=== PATIENT | male | born 1965 | race Caucasian/White ===

== ENCOUNTER 2016-07-15 07:09 | Day surgery (SDC) | payer BC ==
[~2016-07-15 07:09] MED LIST: Lactated Ringers 1,000 ML IV SCH
[2016-07-15] MEDS ORDERED: Lidocaine 1% 50 ML MDV ONE (07:38)
[2016-07-15] MEDS ORDERED: Propofol 200 MG/20 ML SDV ONE (07:40)
[2016-07-15] MEDS ORDERED: Lidocaine 2% 5 ML SDV ONE (07:40)
[2016-07-15] MEDS ORDERED: Ondansetron 4 MG/2 ML SDV ONE (07:41)
[2016-07-15] MEDS ORDERED: Midazolam 1 MG/ML 2 ML SDV ONE (07:41)
[2016-07-15] MEDS ORDERED: fentaNYL 250 MCG/5 ML SDV ONE (07:41)
[2016-07-15] MEDS ORDERED: Ketorolac 30 MG/ML SDV ONE (07:41)
[2016-07-15] MEDS ORDERED: ceFAZolin 2 GM in Premix Bag 1 BAG IV SCH (08:00)
[2016-07-15] MEDS ORDERED: Hydrocortisone Sodium Succinate 250 MG/2 ML SDV IV ONE (08:07)
--- NOTE | 2016-07-15 08:11 | PCM.PREANE ---
Preanesthetic Assessment - Anesthesia/Transfusion/Family Hx Anesthesia History: Prior Anesthesia Without Reaction Family History of Anesthesia Reaction: No Transfusion History: No Prior Transfusion(s) - Review of Systems General: No Symptoms Pulmonary: No Symptoms Cardiovascular: No Symptoms Gastrointestinal: No symptoms Neurological: No Symptoms Other: Reports: None - Physical Assessment NPO Status Date: 07/14/16 O2 Sat by Pulse Oximetry: 99 Respiratory Rate: 16 Vital Signs: Last Vital Signs Temp 36.4 C 07/15/16 07:38 Pulse 71 07/15/16 07:38 Resp 16 07/15/16 07:38 BP 130/70 07/15/16 07:38 Pulse Ox 99 07/15/16 07:38 Height: 1.8 m Weight: 84.822 kg ASA Class: 2 Mental Status: Alert & Oriented x3 Airway Class: Mallampati = 2 Dentition: Reports: Normal Dentition (veneers on upper incisors) ROM/Head Extension: Full Lungs: Clear to auscultation, Normal respiratory effort Cardiovascular: Regular Rate, Regular Rhythm - Allergies Allergies/Adverse Reactions: Allergies Allergy/AdvReac Type Severity Reaction Status Date / Time No Known Allergies Allergy Verified 07/24/13 16:24 - Anesthesia Plan Pre-Op Medication Ordered: Other (hydrocortisone 25 mg IV ordered, to be given intraoperatively.) - Acknowledgements Anesthesia Type Planned: General Anesthesia Pt an Appropriate Candidate for the Planned Anesthesia: Yes Alternatives and Risks of Anesthesia Discussed w Pt/Guardian: Yes Pt/Guardian Understands and Agrees with Anesthesia Plan: Yes PreAnesthesia Questionnaire HEENT History: Reports: Other (see below) Other HEENT History: wears glasses Cardiovascular History: Reports: High cholesterol Gastrointestinal History: Reports: Other (see below) Other Gastrointestinal History: occasional heartburn Musculoskeletal History: Reports: Back pain, chronic, Fracture Other Musculoskeletal History: hx fx collarbone, hx torn ligament to ankles 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 - Past Surgical History Head Surgeries/Procedures: Reports: None GI Surgical History: Reports: Hernia, inguinal Other GI Surgeries/Procedures: hx inguinal hernia repair Musculoskeletal Surgical History: Reports: Arthroscopic knee Other Musculoskeletal Surgeries/Procedures:: hx ACL repair left knee, hx arthroscopy rt knee - SUBSTANCE USE Smoking Status *Q: Former Smoker Tobacco Use Within Last Twelve Months: No Days Per Week of Alcohol Use: 7 Number of Drinks Per Day: 3 Total Drinks Per Week: 21 Recreational Drug Use History: No - HOME MEDS Home Medications: Home Meds Hydrocortisone 30 mg PO BID 07/24/13 [History] Levothyroxine 125 mcg PO DAILY 07/24/13 [History] Celecoxib 200 mg PO BID PRN 07/13/16 [History] - CURRENT (IN HOUSE) MEDS Current Meds: Current Medications Acetaminophen/Hydrocodone Bitart ([place] 325-5 Mg) 1 - 2 tab PO Q4H PRN PRN Reason: Pain Lactated Ringer's (Ringers, Lactated) 1,000 mls @ 100 mls/hr IV ASDIRECTED [facility] Last Admin: 07/15/16 07:37 Dose: 100 mls/hr Cefazolin Sodium/Dextrose 2 gm (/ Premix) 50 mls @ 100 mls/hr IV ONCALL RONAK Discontinued Medications Fentanyl (Sublimaze) Confirm Administered Dose 250 mcg .ROUTE .STK-MED ONE Stop: 07/15/16 07:42 Ketorolac Tromethamine (Toradol) Confirm Administered Dose 30 mg .ROUTE .STK- MED ONE Stop: 07/15/16 07:42 Lidocaine (Xylocaine-Mpf 2%) Confirm Administered Dose 10 ml .ROUTE .STK-MED ONE Stop: 07/15/16 07:41 Lidocaine HCl (Xylocaine 1%) Confirm Administered Dose 50 ml .ROUTE .STK-MED ONE Stop: 07/15/16 07:39 Midazolam HCl (Versed 1 Mg/Ml) Confirm Administered Dose 2 mg .ROUTE .STK-MED ONE Stop: 07/15/16 07:42 Ondansetron HCl (Zofran) Confirm Administered Dose 4 mg .ROUTE .STK-MED ONE Stop: 07/15/16 07:42 Propofol (Diprivan 20 Ml) Confirm Administered Dose 400 mg .ROUTE .STK-MED ONE Stop: 07/15/16 07:41 Preanesthetic Assessment - ANESTHESIA/TRANSFUSION/FAMILY HX Family History of Anesthesia Reaction: No - PHYSICAL ASSESSMENT O2 Sat by Pulse Oximetry: 99 RR: 16 Vital Signs: Last Vital Signs Temp 36.4 C 07/15/16 07:38 Pulse 71 07/15/16 07:38 Resp 16 07/15/16 07:38 BP 130/70 03/22/17 07:38 Pulse Ox 99 07/15/16 07:38 Height: 1.8 m Weight: 84.822 kg - ALLERGIES Allergies/Adverse Reactions: Allergies Allergy/AdvReac Type Severity Reaction Status Date / Time No Known Allergies Allergy Verified 07/24/13 16:24
[2016-07-15] MEDS ORDERED: Hydrocortisone Sodium Succinate 100 MG/2 ML SDV IV ONE (09:30)
[2016-07-15] MEDS ORDERED: ePHEDrine 50 MG/ML SDV ONE (09:41)
[2016-07-15] MEDS ORDERED: Acetaminophen/HYDROcodone 325-5 MG Tab PO PRN (10:00)
--- NOTE | 2016-07-15 10:42 | PCM.OPNOTE ---
<Carri Mcmahan - Last Filed: 07/15/16 10:38> - General Post-Op/Procedure Note Date of Surgery/Procedure: 07/15/16 Operative Procedure(s): right knee arthroscopy, partial medial and partial lateral meniscectomy Anesthesia Technique: MAC Primary Surgeon: Milagro Frias Canvas Baster: Carri Mcmahan Canvas Baster: Zenaida Bennett EBL in mLs: 5 Drain/Tube Comments:: tourniquet time: 44 minutes Condition: Good <Milagro Frias - Last Filed: 07/15/16 10:50> - General Post-Op/Procedure Note Free Text/Narrative:: #[id number] tt=44 min
[2016-07-15] MEDS: fentaNYL 100 MCG/2 ML SDV IVPUSH PRN ×2 (11:12→11:17)
[2016-07-15] MEDS ORDERED: diphenhydrAMINE 50 MG/ML SDV IVPUSH ONE (11:36)
[2016-07-15 11:59] VITALS: BP 128/75
--- NOTE | 2016-07-15 12:03 | OR ---
SURGEON: Milagro Frias MD DATE OF PROCEDURE: 07/15/2016 PREOPERATIVE DIAGNOSIS: Right knee pain, status post ACL reconstruction. POSTOPERATIVE DIAGNOSES: 1. Right knee medial meniscus tear. 2. Right knee lateral meniscus tear. 3. Degenerative joint disease, right knee. PROCEDURE: Right knee arthroscopy with partial medial and lateral meniscectomy. COMPUTATIONAL MATHEMATICIAN: Carri Mcmahan MD, PGY-2. ANESTHESIA: General. ESTIMATED BLOOD LOSS: 5 mL. TOURNIQUET TIME: 44 minutes. COMPLICATIONS: None. DVT PROPHYLAXIS: None indicated. IMPLANTS USED: None. BRIEF HISTORY: Cooper is a 50-year-old male, who has had complaint of progressive right knee pain. He has tried cortisone injections in the past, which has given him limited short-term relief. He has previously undergone an ACL reconstruction many years ago. He does have retained metallic screws. Due to the fact that he had the retained metallic screws, I did not recommend an MRI. With his continued pain, I recommended he undergo a right knee arthroscopy. He agreed to proceed. DESCRIPTION OF PROCEDURE: The patient was properly identified and brought to the operating room. He was transferred from the OR cart and placed on the operating table in the supine position. General anesthesia was administered. After adequate anesthesia was obtained, a well-padded tourniquet was applied to the right lower extremity. The right lower extremity was then prepped in standard fashion using ChloraPrep solution. It was then sterilely draped. A time-out was performed to ensure correct site and procedure. Preoperative antibiotics were given. The surgical site had been marked preoperatively. An Esmarch was used to exsanguinate the right lower extremity and the tourniquet was inflated to 250 mmHg. A lateral portal arthrotomy was established. Blunt trocar and cannula were introduced into the suprapatellar pouch. Camera, inflow, and outflow were assembled. No significant synovitis was noted. The patellofemoral joint was visualized. There was some mild degenerative changes along the central portion of the trochlea consistent with grade 2 chondromalacia. The patella appeared to track centrally. I then extended down the lateral gutter. No loose bodies were identified. As I extended down the medial gutter, there was a synovial shelf which appeared to be impinging on the medial femoral condyle with flexion and extension of the knee. I extended down to the medial joint line and no loose bodies were identified. I then entered the medial compartment. A medial portal arthrotomy was established. A blunt probe was inserted. He was found to have complex tear of the posterior horn of the medial meniscus. Using a combination of biters and madeline, this was resected back to a stable remnant. Very little meniscus remained along the posterior aspect of the knee. The remainder of the meniscus was intact. The cartilaginous surfaces were then inspected. There was a diffuse grade 3 chondromalacia along the medial tibial plateau. The medial femoral condyle showed grade 2 to grade 3 chondromalacia diffusely as well. I then entered the notch. The ACL graft was identified. There was some fraying of the anterior fibers. This was resected with a shaver as they appeared to be causing some impingement in the joint. The remainder of the ACL remained intact. Along the superior portion of the notch, the metallic screw from the prior ACL reconstruction was visualized. It was quite superior within the notch. It did not appear to be causing any impingement and I elected to leave it in place. There was a loose bony piece which was attached to the synovium just lateral to the ACL. I also removed this bony piece without difficulty. I then entered the lateral compartment. Grade 2 to grade 3 chondromalacia was noted diffusely along the lateral tibial plateau surface as well as lateral femoral condyle. The meniscus was probed. Degenerative fraying of the central portion of the meniscus was noted. This was resected with a combination of biters and shaver. The meniscus was again probed and found to be stable. I re-entered the patellofemoral joint. The central area of the trochlea showed grade 3 chondromalacia, which measured approximately 5 mm x 15 mm centrally. The remainder of the cartilage showed softening consistent with grade 1 to grade 2 chondromalacia only. Diffuse grade 2 chondromalacia was also noted under the patella. The shaver was then used to resect the synovial folds that appeared to be causing impingement on the medial femoral condyle. His knee was again taken through a range of motion. No further impingement occurred. Instruments were then removed from the knee. The portal sites were closed with 3-0 nylon. Lidocaine 1% was injected along the portal tracts. Xeroform gauze was placed over the wound and a bulky dressing was applied. Tourniquet was then deflated. He was awakened from his anesthetic and transferred back to the operating room cart. He was brought to recovery room in stable condition. All needle and sponge counts were correct. RANJEET / BOO /[id number]
--- NOTE | 2016-07-15 12:18 | PCM48HPAN ---
Post Anesthesia Note - EVALUATION WITHIN 48HRS OF ANESTHETIC Vital Signs in Normal Range: Yes Patient Participated in Evaluation: Yes Respiratory Function Stable: Yes Airway Patent: Yes Cardiovascular Function Stable: Yes Hydration Status Stable: Yes Pain Control Satisfactory: Yes Nausea and Vomiting Control Satisfactory: Yes Mental Status Recovered: Yes
--- NOTE | 2016-07-15 12:19 | PCM.POSTAN ---
POST ANESTHESIA ASSESSMENT - MENTAL STATUS Mental Status: alert, oriented - RESPIRATORY Respiratory Status: respiratory rate WNL, airway patent - CARDIOVASCULAR CV Status: pulse rate WNL, blood pressure stable - GASTROINTESTINAL GI Status: no symptoms - POST OP HYDRATION Hydration Status: adequate & stable
== END 2016-07-15 12:10 | disposition home or self-care (01) ==
LOC: MW.SDS 07:09
PROVIDERS: ATTEND Orthopaedic Surgery
PROC: 0SBC4ZZ Excision of Right Knee Joint, Percutaneous Endoscopic Approach (ICD-10-PCS; principal; 2016-07-15)
PROC: 0SBC4ZZ Excision of Right Knee Joint, Percutaneous Endoscopic Approach (ICD-10-PCS; 2016-07-15)
DX: S83.231A Complex tear of medial meniscus, current injury, right knee, initial encounter (principal); S83.281A Other tear of lateral meniscus, current injury, right knee, initial encounter; M94.261 Chondromalacia, right knee; M65.861 Other synovitis and tenosynovitis, right lower leg; M17.0 Bilateral primary osteoarthritis of knee; E78.00 Pure hypercholesterolemia, unspecified; E27.1 Primary adrenocortical insufficiency; Z87.891 Personal history of nicotine dependence; Z98.890 Other specified postprocedural states; Z79.899 Other long term (current) drug therapy
CPT/HCPCS: 29880; 88304; J1200; J1885; J2250; J2405; J3010; J7120; 01400; J2704

== ENCOUNTER 2017-03-26 11:30 | Day surgery (SDC) | payer BC ==
[~2017-03-26 11:30] MED LIST changes: +Midazolam 1 MG/ML 2 ML SDV ONE; +Propofol 200 MG/20 ML SDV ONE; +fentaNYL 100 MCG/2 ML SDV ONE
--- NOTE | 2017-03-26 12:13 | PCM.PREANE ---
Preanesthetic Assessment - Anesthesia/Transfusion/Family Hx Anesthesia History: Prior Anesthesia Without Reaction Family History of Anesthesia Reaction: No Transfusion History: No Prior Transfusion(s) - Review of Systems General: No Symptoms Pulmonary: No Symptoms Cardiovascular: No Symptoms Gastrointestinal: No Symptoms Neurological: No Symptoms Other: Reports: None - Physical Assessment NPO Status Date: 03/25/17 Height: 1.8 m Weight: 91.172 kg ASA Class: 2 Mental Status: Alert & Oriented x3 Airway Class: Mallampati = 2 Dentition: Reports: Normal Dentition (veneere to front incisors) ROM/Head Extension: Full Lungs: Clear to Auscultation, Normal Respiratory Effort Cardiovascular: Regular Rate, Regular Rhythm - Allergies Allergies/Adverse Reactions: Allergies Allergy/AdvReac Type Severity Reaction Status Date / Time No Known Allergies Allergy Verified 07/24/13 16:24 - Anesthesia Plan Pre-Op Medication Ordered: None - Acknowledgements Anesthesia Type Planned: MAC Pt an Appropriate Candidate for the Planned Anesthesia: Yes Alternatives and Risks of Anesthesia Discussed w Pt/Guardian: Yes Pt/Guardian Understands and Agrees with Anesthesia Plan: Yes Additional Comments: PMH addisons, hypothyroid, gerd, HLD. took steroida and thyroid meds this am. PreAnesthesia Questionnaire HEENT History: Reports: Other (See Below) Other HEENT History: wears glasses Cardiovascular History: Reports: High Cholesterol Gastrointestinal History: Reports: Other (See Below) Other Gastrointestinal History: occasional heartburn Musculoskeletal History: Reports: Back Pain, Chronic, Fracture Other Musculoskeletal History: hx fx collarbone, hx torn ligament to ankles Endocrine/Metabolic History: Reports: Wilkin's Disease Other Endocrine/Metabolic History: Addisons disease - Past Surgical History Head Surgeries/Procedures: Reports: None GI Surgical History: Reports: Hernia, Inguinal Other GI Surgeries/Procedures: hx inguinal hernia repair Musculoskeletal Surgical History: Reports: Arthroscopic Knee Other Musculoskeletal Surgeries/Procedures:: hx ACL repair left knee, hx arthroscopy rt knee - SUBSTANCE USE Smoking Status *Q: Former Smoker Tobacco Use Within Last Twelve Months: No Days Per Week of Alcohol Use: 7 Number of Drinks Per Day: 3 Total Drinks Per Week: 21 Recreational Drug Use History: No - HOME MEDS Home Medications: Home Meds Hydrocortisone 30 mg PO BID 07/24/13 [History] Levothyroxine 125 mcg PO DAILY 07/24/13 [History] - CURRENT (IN HOUSE) MEDS Current Meds: Current Medications Lactated Ringer's (Ringers, Lactated) 1,000 mls @ 125 mls/hr IV ASDIRECTED RONAK Last Admin: 03/26/17 12:07 Dose: 125 mls/hr Discontinued Medications Fentanyl (Sublimaze) Confirm Administered Dose 100 mcg .ROUTE .STK-MED ONE Stop: 03/26/17 07:12 Lidocaine HCl (Xylocaine-Mpf 1%) Confirm Administered Dose 5 ml .ROUTE .STK-MED ONE Stop: 03/26/17 07:12 Midazolam HCl (Versed 1 Mg/Ml) Confirm Administered Dose 2 mg .ROUTE .STK-MED ONE Stop: 03/26/17 07:12 Propofol (Diprivan 20 Ml) Confirm Administered Dose 200 mg .ROUTE .STK-MED ONE Stop: 03/26/17 07:12
[2017-03-26] MEDS ORDERED: Propofol 200 MG/20 ML SDV ONE (12:34)
[2017-03-26] MEDS ORDERED: Phenylephrine/Normal Saline 100 MCG/ML 10 ML Syringe ONE (12:34)
--- NOTE | 2017-03-26 12:58 | PCM.OPNOTE ---
- General Post-Op/Procedure Note Date of Surgery/Procedure: 03/26/17 Operative Procedure(s): Colonoscopy Pre Op Diagnosis: Desire for colorectal cancer screening Post-Op Diagnosis: Pancolonic diverticulosis Anesthesia Technique: MAC (ASA II) Primary Surgeon: Roosevelt Guzmán Condition: Good Free Text/Narrative:: Dictation [id number] CPT CODE 90240
[2017-03-26] MEDS ORDERED: Lactated Ringers 1,000 ML IV SCH (13:00)
--- NOTE | 2017-03-26 13:21 | OR ---
SURGEON: Roosevelt Guzmán M.D. DATE OF PROCEDURE: 03/26/2017 OPERATION PERFORMED: Colonoscopy. ANESTHESIA: MAC. ASA CLASSIFICATION: II. PREOPERATIVE DIAGNOSIS: Desire for colorectal cancer screening. POSTOPERATIVE DIAGNOSIS: Pancolonic diverticulosis. DESCRIPTION OF PROCEDURE: The patient was taken to the endoscopy room, positioned on the endoscopy table in the left lateral decubitus position. Time-out was called for appropriate identification of the patient and procedure. Monitored anesthesia care was provided. The colonoscope was inserted into the rectum and advanced with minimal difficulty to the cecum where the colonoscope was retroflexed to visualize the ascending colon from below. The colonoscope was then straightened and slowly withdrawn. The cecum, ascending colon, hepatic flexure, transverse colon, splenic flexure, descending colon, sigmoid colon, and rectum were very well visualized. The patient demonstrates pancolonic diverticulosis. No stricture or spasm was noted. No polyps were encountered anywhere in the lower gastrointestinal tract. There was no evidence of inflammatory bowel disease or ulcerative colitis. The colonoscope was withdrawn to the rectum and retroflexed to visualize the anal orifice from above. Again, no tumors or polyps were seen and there were no acute hemorrhoidal changes. The colonoscope was then straightened, the rectum aspirated, and the colonoscope removed. The patient tolerated the procedure well and was taken to recovery room in stable condition. PRIMARY SURGEON: SECONDARY SURGEON: LANDING SIGNAL OFFICER: REASON LANDING SIGNAL OFFICER WAS NECESSARY: ROLE OF LANDING SIGNAL OFFICER: MANUEL HADDAD /[id number]
--- NOTE | 2017-03-26 13:33 | PCM.POSTAN ---
POST ANESTHESIA ASSESSMENT - MENTAL STATUS Mental Status: Alert, Oriented - CARDIOVASCULAR CV Status: Pulse Rate WNL, Blood Pressure Stable - GASTROINTESTINAL GI Status: No Symptoms - POST OP HYDRATION Hydration Status: Adequate & Stable
[2017-03-26 14:24] VITALS: BP 101/61
== END 2017-03-26 13:45 | disposition home or self-care (01) ==
LOC: MW.SDS 11:30
PROVIDERS: ATTEND Surgery
DX: Z12.11 Encounter for screening for malignant neoplasm of colon (principal); K57.30 Diverticulosis of large intestine without perforation or abscess without bleeding; K21.9 Gastro-esophageal reflux disease without esophagitis; E78.00 Pure hypercholesterolemia, unspecified; E27.1 Primary adrenocortical insufficiency; E03.9 Hypothyroidism, unspecified; G89.29 Other chronic pain; M54.9 Dorsalgia, unspecified; Z87.891 Personal history of nicotine dependence; Z79.52 Long term (current) use of systemic steroids; Z79.899 Other long term (current) drug therapy; Z98.890 Other specified postprocedural states
CPT/HCPCS: 45378; J2250; J3010; J7120; J2704

== ENCOUNTER 2017-07-25 07:41 | Emergency (ER) | payer BC ==
[2017-07-25 07:51] VITALS: BP 133/90
--- NOTE | 2017-07-25 07:58 | EDM.PDOC ---
ED HPI GENERAL MEDICAL PROBLEM - General Chief Complaint: Eye Problems Stated Complaint: SOMETHING IN LEFT EYE Time Seen by Provider: 07/25/17 07:50 Source of Information: Reports: Patient History Limitations: Reports: No Limitations - History of Present Illness INITIAL COMMENTS - FREE TEXT/NARRATIVE: History of present illness: []Patient awoke with blood in his left eye. He denies any trauma, he has no complaints of any visual changes. 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 He has no any other areas of bleeding at this time. Review of systems: As per history of present illness and below otherwise all systems reviewed and negative. Past medical history: As per history of present illness and as reviewed below otherwise noncontributory. Surgical history: As per history of present illness and as reviewed below otherwise noncontributory. Social history: No reported history of drug or alcohol abuse. Family history: As per history of present illness and as reviewed below otherwise noncontributory. Physical exam: General: Well developed, well nourished in NAD HEENT: Atraumatic, normocephalic, pupils reactive, left lateral sub- conjunctival hemorrhage or scleral icterus, mucous membranes moist, throat clear , neck supple, nontender, trachea midline. Lungs: Clear to auscultation, breath sounds equal bilaterally, chest nontender. Heart: S1S2, regular, negative for clicks, rubs, or JVD. Abdomen: Soft, nondistended, nontender. Negative for masses or hepatosplenomegaly. Negative for costovertebral tenderness. Pelvis: Stable nontender. Genitourinary: Deferred. Rectal: Deferred. Extremities: Atraumatic, negative for cords or calf pain. Neurovascular unremarkable. Neuro: Awake, alert, oriented. Cranial nerves II through XII unremarkable. Cerebellum unremarkable. Motor and sensory unremarkable throughout. Exam nonfocal. Diagnostics: [] Therapeutics: [] Impression: []Left subconjunctival hemorrhage Plan: []Follow-up with ophthalmology as needed Definitive disposition and diagnosis as appropriate pending reevaluation and review of above. - Related Data Allergies Allergy/AdvReac Type Severity Reaction Status Date / Time No Known Allergies Allergy Verified 07/25/17 07:49 Home Meds: Home Meds Hydrocortisone 30 mg PO BID 07/24/13 [History] Levothyroxine 125 mcg PO DAILY 07/24/13 [History] Celecoxib 200 mg PO DAILY 07/25/17 [History] Past Medical History HEENT History: Reports: Other (See Below) Other HEENT History: wears glasses Cardiovascular History: Reports: High Cholesterol Gastrointestinal History: Reports: Other (See Below) Other Gastrointestinal History: occasional heartburn Musculoskeletal History: Reports: Back Pain, Chronic, Fracture Other Musculoskeletal History: hx fx collarbone, hx torn ligament to ankles 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 - Past Surgical History Head Surgeries/Procedures: Reports: None GI Surgical History: Reports: Hernia, Inguinal Other GI Surgeries/Procedures: hx inguinal hernia repair Musculoskeletal Surgical History: Reports: Arthroscopic Knee Other Musculoskeletal Surgeries/Procedures:: hx ACL repair left knee, hx arthroscopy rt knee Social & Family History - Tobacco Use Smoking Status *Q: Former Smoker Used Tobacco, but Quit: Yes Month/Year Tobacco Last Used: quit smoking 5 yrs ago - Alcohol Use Days Per Week of Alcohol Use: 7 Number of Drinks Per Day: 3 Total Drinks Per Week: 21 - Recreational Drug Use Recreational Drug Use: No ED ROS GENERAL - Review of Systems Review Of Systems: See Below (See history of present illness) ED EXAM GENERAL W FULL EYE - Physical Exam Exam: See Below (See history of present illness) Course - Vital Signs Last Recorded V/S: Last Vital Signs Temp 97.0 F 07/25/17 07:49 Pulse 66 07/25/17 07:49 Resp 20 07/25/17 07:49 BP 133/90 07/25/17 07:49 Pulse Ox 99 07/25/17 07:49 Departure - Departure Time of Disposition: 07:57 Disposition: Home, Self-Care 01 Condition: Good Clinical Impression: Subconjunctival hemorrhage of left eye - Discharge Information Referrals: Valentin Frias MD [Primary Care Provider] - Additional Instructions: The following information is given to patients seen in the emergency department who are being discharged to home. This information is to outline your options for follow-up care. We provide all patients seen in our emergency department with a follow-up referral. The need for follow-up, as well as the timing and circumstances, are variable depending upon the specifics of your emergency department visit. If you don't have a primary care physician on staff, we will provide you with a referral. We always advise you to contact your personal physician following an emergency department visit to inform them of the circumstance of the visit and for follow-up with them and/or the need for any referrals to a consulting specialist. The emergency department will also refer you to a specialist when appropriate. This referral assures that you have the opportunity for follow-up care with a specialist. All of these measure are taken in an effort to provide you with optimal care, which includes your follow-up. Under all circumstances we always encourage you to contact your private physician who remains a resource for coordinating your care. When calling for follow-up care, please make the office aware that this follow-up is from your recent emergency room visit. If for any reason you are refused follow-up, please contact the [facility] Emergency Department at and asked to speak to the emergency department charge nurse. [address] [address]
== END 2017-07-25 08:04 | disposition home or self-care (01) ==
LOC: MW.ED 07:41
DX: H11.32 Conjunctival hemorrhage, left eye (principal); Z79.899 Other long term (current) drug therapy; Z87.891 Personal history of nicotine dependence
CPT/HCPCS: 99282